=== PATIENT | male | born 1995 | race Caucasian/White ===

== ENCOUNTER 2019-08-04 13:39 | Inpatient (IN) | payer OTHER ==
[~2019-08-04] VITALS: Ht 177.8 cm; Wt 194.2 kg
--- NOTE | 2019-08-04 16:52 | NUR ---
REC'D A 24/M IN RM 15 WITH C/O WITH C/O NONPRODUCTIVE COUGH X 1 MONTH. PT REPORTS TACTILE FEVER YESTERDAY. PT DENIES SICK CONTACT OR FLU VACCINE. HX OF HTN, NONCOMPLIANT TO HTN MEDS. PT SENT BY URGENT CARE TO R/O PNA/BRONCHITIS. PT AAOX4, CLEAR SPEECH, RESP EU, DIMINISHED BREATH SOUND TO LEFT UPPER LOBE. PT ON CM, AND IN NO ACUTE DISTRESS.
--- NOTE | 2019-08-04 17:19 | NUR ---
DR DOUGHERTY AT BEDSIDE FOR MSE.
--- NOTE | 2019-08-04 18:32 | NUR ---
DR DOUGHERTY AWARE OF HIGH B/P
[2019-08-04 19:12] LABS: BASOPHIL % 0.2 % (0-2); PLATELET COUNT 185 x10^3mcL (130-400); RED CELL DISTRIBUTION WIDTH 13.5 % (11.5-14.5)
[2019-08-04 19:16] LABS: CALCIUM 9.3 mg/dL (8.5-10.1); CARBON DIOXIDE 27.4 mmol/L (21-32); CHLORIDE SERUM 101 mmol/L (98-107); CREATININE SERUM 0.9 mg/dL (0.7-1.3); GFR1 > 60 mL/min; GLUCOSE SERUM 161 mg/dL (74-106); POTASSIUM SERUM 3.6 mmol/L (3.5-5.1); SODIUM SERUM 140 mmol/L (136-145)
--- NOTE | 2019-08-04 19:20 | NUR ---
TARYN ISPRIMRY NURSE AT THIS CURRENT TIME PT IS A/EVELIA4 ON CM WITH C/L IN [place]
[2019-08-04 19:33] LABS: FREE T4 0.99 ng/dL (0.76-1.46); FREE THYROXINE INDEX 2.6 ug/dL (1.4-4.5); T4(THYROXINE) 7.8 ug/dL (4.7-13.3)
[2019-08-04 19:37] LABS: ALBUMIN 3.7 g/dL (3.4-5.0); ALKALINE PHOSPHATASE 88 U/L (46-116); ALT/SGPT 67 U/L (16-63); AST/SGOT 45 U/L (15-37); BILIRUBIN TOTAL 0.3 mg/dL (0.20-1.00); C REACTIVE PROTEIN 4.6 mg/dL (<=0.9)
[2019-08-04 19:38] LABS: TOTAL PROTEIN, SERUM 8.3 g/dL (6.4-8.2)
[2019-08-04 19:42] LABS: UA SPECIFIC GRAVITY 1.025 (1.005-1.035); microscopic required? YES; urine erythrocyte NEGATIVE (NEGATIVE)
[2019-08-04 19:46] LABS: T3 TOTAL 1.08 ng/mL
--- NOTE | 2019-08-04 20:34 | NUR ---
PT WAS RECEIVED BY PRIMARY NURSE LEORA FROM ED VIA WHEELCHAIR, CAME IN DUE TO COUGH X1 MONTH. AAOX4. DENIES HEADACHE/DIZZINESS. ABLE TO FOLLOW COMMANDS. NO SOB NOTED, LUNG SOUNDS DIMINISHED ON THE BASES. STATED THAT HE HAS PRODUCTIVE COUGH, ABLE TO EXPECTORATE LARGE AMOUNT OF GREEN PHLEGM. DENIES CHEST PAIN/PRESSURE, SINUS TACHYCARDIA ON THE MONITOR. HR AT 107. DENIES ABDOMINAL DISCOMFORT. VOIDS. IV SITE PATENT AND INTACT. RECEIVED PT FROM ED W/ ZITHROMAX ONGOING. SIDE RAILS UPX2. CALL LIGHT ON REACH. ENDORSED TO PRIMARY NURSE LEORA FOR CONTINUITY OF CARE
--- NOTE | 2019-08-04 20:35 | NUR ---
PT STATED THAT THEY DO NOT HAVE A PREFERRED PHARMACY AT THIS TIME AND WOULD LIKE A WRITTEN PRESCRIPTION JUST IN CASE HE WILL BE DISCHARGED W/ NEW MEDICATIONS.
[2019-08-04 20:38] LABS: ERYTHROCYTE SED RATE 45 mm/hr (0-15)
--- NOTE | 2019-08-04 20:41 | NUR ---
PT TAKEN TO MED SURG FLOOR VIA WHEEL CHAIR ACCOMPANIED BY MOTHER AND EMT. NO S/S OF DISTRESS. RESP E/U. IV SITE PATENT. PT DENIES PAIN OR DISCOMFORT.
[2019-08-04 21:03] VITALS: BP 134/64
[2019-08-04 21:05] VITALS: Ht 177.8 cm; Wt 194.2 kg
--- NOTE | 2019-08-04 21:44 | NUR ---
PAGED DR. CODY FOR ADMIT ORDERS, WAITING FOR CALLBACK
--- NOTE | 2019-08-04 22:00 | NUR ---
RECEIVED CALLBACK FROM DR. CODY FOR ADMIT ORDERS. ORDERS WERE CARRIED OUT.
--- NOTE | 2019-08-05 01:06 | NUR ---
PT AWAKE ON HIS PHONE. PT DENIES ANY ACUTE DISTRESS AT THIS TIME. CALL LIGHT WITHIN REACH. BED IN LOWEST POSITION. SIDE RAILS X2 UP. WILL CONTINUE TO MONITOR.
--- NOTE | 2019-08-05 03:10 | NUR ---
PT SLEEPING, BUT EASILY AROUSABLE. NO ACUTE DISTRESS NOTED. CALL LIGHT WITHIN REACH. BED IN LOWEST POSITION. SIDE RAILS X2 UP. WILL CONTINUE TO MONITOR.
--- NOTE | 2019-08-05 05:05 | NUR ---
PT SLEPT IN INTERVALS FOR MOST OF THE SHIFT. PT COMPLIED WITH NURSING CARE THROUGHOUT THE SHIFT. NO ACUTE DISTRESS NOTED. ALL QUESTIONS AND CONCERNS ADDRESSED. COMFORT AND SAFETY MEASURES MAINTAINED DURING THE SHIFT. WILL ENDORSE CARE TO DAY SHIFT NURSE. WILL CONTINUE TO MONITOR.
[2019-08-05 05:30] VITALS: BP 147/82
[2019-08-05 05:42] VITALS: BP 147/82
[2019-08-05 07:14] LABS: BASOPHIL % 0.6 % (0-2); PLATELET COUNT 165 x10^3mcL (130-400); RED CELL DISTRIBUTION WIDTH 13.7 % (11.5-14.5)
--- NOTE | 2019-08-05 08:00 | NUR ---
RECEIVED PATIENT ALERT AND ORIENTED AND GROSSLY OBESE. PATIENT HAS EDEMA OF ONE PLUS TO THE LOWER EXTREMTY AND THE ABDOMEN GIRTH IS IN EXCESS AND DISTENDED AND FIRM PATEINT HAS DIMINISHED BREATH SOUND AND BREATHING IS SHALLOW. HE HAS BEEN HAVING A PRODUCTIVE COUGH AND HE HAS NOT BEEN TAKING MEDICATION OF ANY KIMD. PATIENT ADMITS HE WAS ON HYPERTENSIVE MEDICATION PRIOR BUT STOPPED TAKING THEM HE HAS A SEDENTARY JOB ANSWERING PHONES AND HAS LITTLE OR NO EXCERSIZE. DENIES HISTORY OF DIABETES OR SLEEP APNEA BUT IS A CANIDATE FOR BOTH ISSUES. PATIENT HAS BEEN TOLERATING DIET AND FLUIDS AND IS ABLE TO AMBULATE TO THE RESTROOM AND BACK. VITALS AT THIS TIME AT 97.4, 119, 18, 2157/93, 114, 94%.
[2019-08-05 08:07] LABS: CALCIUM 9.6 mg/dL (8.5-10.1); CARBON DIOXIDE 28.4 mmol/L (21-32); CHLORIDE SERUM 101 mmol/L (98-107); CREATININE SERUM 0.8 mg/dL (0.7-1.3); GFR1 > 60 mL/min; GLUCOSE SERUM 179 mg/dL (74-106); MAGNESIUM 2.2 mg/dL (1.8-2.4); POTASSIUM SERUM 3.6 mmol/L (3.5-5.1); SODIUM SERUM 138 mmol/L (136-145)
[2019-08-05 09:19] VITALS: BP 157/93
--- NOTE | 2019-08-05 10:48 | NUR ---
PATIENT WITH MOTHER AT BEDSIDE AND DISCUSSED HIS ISSUES AND POSSIBLE PLAN OF CAER. SPOKE WITH LIVIA AT HIS PRIMARY CLINIC AND SHE WAS ASKING ABOUT THE REASON FO RADMISSION AND ADIVSED THAT HE WAS NOT SUPPOSE TO BE ADMITTED. LIVIA WILL TAKE CARE OF THIS ON HER END SHE STATES. DR GONZALEZ WILL BE IN TO SEE PATIETN AND AWAIORDERS AT THIS TIME.
--- NOTE | 2019-08-05 12:23 | NUR ---
BP IN THE 180'S AND DR HAS NOT SEEN YET. WILL CALL INDICATED.
--- NOTE | 2019-08-05 12:28 | NUR ---
PATIENT HAS BP AT 180/100 AND CALLED FOR ORDERS. ALSO COMPLAINS OF COUGH.
[2019-08-05 12:39] VITALS: BP 180/100
--- NOTE | 2019-08-05 14:08 | NUR ---
PATIENT SEEN BY DR GONZALEZ AND PLAN OF CARE PER THE PATIENT IS TO BE DISCHARGE TO HOME AND WITH PRESCRIPTIONS. PATIENT HAS BEEN WITH HIGH BP AND COUGH. HE IS NOT FOLLOWING PREVIOUS GUIDELINES FOR HIS OWN CARE AND NEEDS TO BE BACK ON HYPERTENSIVE MEDICATIONS. AWAITING ORDERS AT THIS TIME.
[2019-08-05 14:26] VITALS: BP 169/72
--- NOTE | 2019-08-05 15:08 | NUR ---
GAVE NORVASC ORDERED. WILL RECHECK BP INDICATED. WENT OVER THE MEDICATIONS ORDERED FOR HOME.
--- NOTE | 2019-08-05 16:59 | NUR ---
BP AT DISCHARGE AT 169/72. PATIENT REMINDED OT FOLLOW UP WITH HIS PRIMARY INDICATED. HE IS TO TAKE Z PACK, MEDROL PACK AND COUGH MEDICATION INDICATED. HE IS TO TAKE NORVASC DAILY DIRRECT.
== END 2019-08-05 16:05 | disposition home or self-care (01) | DRG 202 ==
LOC: ED 13:39 → DU 20:05
PROVIDERS: Internal Medicine Nephrology; Specialist; ADMIT Internal Medicine Pulmonary Disease
DX: J45.901 Unspecified asthma with (acute) exacerbation (principal); Z68.44 Body mass index [BMI] 60.0-69.9, adult; I10 Essential (primary) hypertension; E66.01 Morbid (severe) obesity due to excess calories; J45.909 Unspecified asthma, uncomplicated; Z91.19 Patient's noncompliance with other medical treatment and regimen
CPT/HCPCS: 36600; 84439; 87804; G0378; J0456; J0696; J1885; J3490; J7030; J7050